=== PATIENT | male | born 1930 | race Caucasian/White ===

== ENCOUNTER 2017-01-06 08:50 | Inpatient (IN) ==
--- NOTE | 2017-01-06 09:06 | Emergency Department Note ---
Disposition Clinical Impression: TIA (transient ischemic attack) Disposition: Admitted As Inpatient Condition: Good Time of Disposition: 11:01 Neuro HPI - General Chief Complaint: ED Neuro Symptoms/Deficit Stated Complaint: TIA r/o/feels foggy and off balance/hx CVA Time Seen by Provider: 01/06/17 08:56 Source: patient, EMS Mode of arrival: EMS Limitations: other Nursing Notes Reviewed: Yes Vital Signs Reviewed: Yes - History of Present Illness HPI Narrative: Pt is an 86-year-old male with a past medical history of TIA and HTN that presents to the ED with chief complaint difficulty in walking and talking. States that he woke up today at 4 AM and symptoms started around 6 AM. He denies any chest pain, shortness of breath, nausea, headache, urinary symptoms, change in vision, vomiting, abdominal pain, neck pain. Daughters at bedside and states that patient does his exact routine every morning and today had trouble speaking and pouring coffee as well as tying his shoe at approx 6 AM. Daughter states that his speech is always a little mumbled secondary to previous TIA in the past but today it worsened at 6 AM. He is not on any blood thinners. Does take a aspirin daily. Onset of Symptoms Time: 06:00 Symptom Onset Unknown: Yes Timing confirmed by: family member Location: speech History of same: Yes Severity: moderate Quality: other (Difficulty with balance, speaking and daily task) Symptoms Improving: No Improves with: none Worsens with: none Context: sudden onset On Anticoagulants: No Associated symptoms: Reports: denies other symptoms. Denies: confusion, chest pain, cough, diaphoresis, fever/chills, headaches, loss of appetite, malaise, nausea/vomiting, vertigo, seizures, shortness of breath, syncope, weakness Treatments Prior to Arrival: none - Related Data Home Medications: Home Medications Medication Instructions Recorded Confirmed Amlodipine Besylate 10 mg PO DAILY 01/06/17 01/06/17 Aspirin [Aspirin] 325 mg PO DAILY 01/06/17 01/06/17 Atenolol [Tenormin] 50 mg PO DAILY 01/06/17 01/06/17 hydroCHLOROthiazide 25 mg PO DAILY 01/06/17 01/06/17 [Hydrochlorothiazide] Allergies/Adverse Reactions: Allergies Allergy/AdvReac Type Severity Reaction Status Date / Time No Known Allergies Allergy Verified 01/06/17 08:55 All systems ED: reviewed and negative except as stated. Review of Systems: As Per HPI Constitutional: Denies: fever, chills, weakness Eyes: Denies: vision change ENT ED: Denies: ear pain, throat pain, dental pain, congestion Cardiovascular: Denies: chest pain, palpitations, dyspnea on exertion, syncope Respiratory: Denies: cough, dyspnea, wheezes Gastrointestinal: Denies: abdominal pain, nausea, vomiting, hematemesis, melena , hematochezia Genitourinary: Denies: urgency, dysuria, frequency, hematuria Musculoskeletal: Denies: back pain, neck pain Integumentary: Denies: rash Neurological: Reports: paresthesias (Left upper and lower extremity). Denies: headache, weakness, numbness Past Medical History - Past Medical History Source: patient Medical history: Reports: CVA, hypertension - Social History Smoking Status: Former smoker Smokeless Tobacco Status: No Alcohol use: Reports: none Drug use: Reports: none Physical Exam - General Limitations: no limitations General appearance: alert, in no apparent distress - Head Head exam: atraumatic, normocephalic, normal inspection - Eye Eye exam: Present: normal appearance, PERRL, EOMI. Absent: conjunctival injection - ENT ENT exam: normal exam, normal oropharynx, mucous membranes moist, TM's normal bilaterally - Neck Neck exam: Present: normal inspection, full ROM, trachea midline. Absent: tenderness, meningismus - Chest Chest inspection: Present: normal inspection, symmetric chest wall rise - Respiratory Respiratory exam: Present: normal lung sounds bilaterally. Absent: respiratory distress - Cardiovascular Cardiovascular exam: Present: regular rate, normal rhythm, normal heart sounds - Abdominal Exam Abdominal exam: Present: soft, Non-Tender. Absent: tenderness, distention, guarding, rebound, rigidity - Extremities Exam Extremities exam: Present: normal inspection, full ROM. Absent: pedal edema - Back Exam Back exam: Present: normal inspection - Neurological Exam Neurological exam: Present: alert, oriented X3, CN II-XII intact, normal gait - Psychiatric Psychiatric exam: Present: normal affect, normal mood - Skin Skin exam: Present: warm, dry, intact, normal color. Absent: rash, cyanosis, diaphoresis Course Course Narrative: Pt is an 86-year-old male with a past medical history of TIA and HTN that presents to the ED with chief complaint difficulty in walking and talking. States that he woke up today at 4 AM and symptoms started around 6 AM. He denies any chest pain, shortness of breath, nausea, headache, urinary symptoms, change in vision, vomiting, abdominal pain, neck pain. Daughters at bedside and states that patient does his exact routine every morning and today had trouble speaking and pouring coffee as well as tying his shoe at approx 6 AM. Daughter states that his speech is always a little mumbled secondary to previous TIA in the past but today it worsened at 6 AM. He is not on any blood thinners. Does take a aspirin daily. Pt is alert and oriented 3. Appears in no acute distress. Following commands. Mild slurred speech that family states is a little worse then normal Head normocephalic. No signs of external trauma. Eyes normal inspection. PERRL. Extraocular movements intact. ENT within normal limits. Airway patent. Neck supple, full range of motion, nontender. Heart RRR. Lungs CTAB. Abdomen soft, nontender. Back inspection, nontender. Extremities within normal limits. Neuro no focal neurological deficits noted on exam. Only abnormality on NIH stroke scale was change in sensory to left upper and lower extremity compared to right upper and lower extremity. Stroke Alert called. Stat CT ordered. Reviewed labs. CT shows No acute intracranial abnormality. Age related changes including chronic small vessel ischemic disease and cerebral atrophy. EKG: reviewed by Dr. Fuller and Joelle. Sinus rhythm. nonspecific ST changes seen in the V2 and V3. However, patient has no chest pain. [facility] neurology contacted. Stroke assessment was performed at bedside by [facility] neurologists. NIH scale 1. He recommended no TPA and obtaining MR brain and lipid panel. States he recommended no TPA secondary to only mild symptoms Discussed case with Dr. Greenberg. He again recommended MRI of the brain and to admit to medicine and to consult him. Discussed imaging and lab results with patient and family. Will admit to medicine. Discussed case with Dr. Moore. Will start patient. No other requested this time. Patient stable to be transferred to the floor. Discussed case with Dr. Vasquez. He had [id number] time with patient and agrees with my assessment and treatment plan. Vital Signs Temperature 98.2 F 01/06/17 08:55 Pulse Rate 56 01/06/17 08:55 Respiratory Rate 20 01/06/17 08:55 Blood Pressure 156/77 01/06/17 08:55 O2 Sat by Pulse Oximetry 97 01/06/17 08:55 Temperature 98.2 F 01/06/17 08:55 Pulse Rate 63 01/06/17 10:45 Respiratory Rate 20 01/06/17 10:58 Blood Pressure 139/75 01/06/17 10:58 O2 Sat by Pulse Oximetry 98 01/06/17 09:11 Oxygen Delivery Oxygen Delivery Room Air Neuro Symptoms/Deficit - Medical Records Medical records reviewed: Yes I reviewed the patient's medical records. - Lab Data Lab results reviewed: Yes I reviewed the patient's lab results. Result diagrams: 01/06/17 09:06 01/06/17 09:06 Lab Results 01/06/17 01/06/17 01/06/17 Range/Units 08:53 09:06 09:06 WBC 5.2 (4.3-11.1) K/mcL RBC 3.99 L (4.19-5.50) M/mcL Hgb 13.6 (12.9-16.9) g/dL Hct 39.4 (37.5-50.1) % MCV 98.7 (83.0-100.0) fL MCH 34.1 H (28.0-33.3) pg MCHC 34.5 (31.6-35.5) g/dL RDW 13.0 (11.5-14.5) % Plt Count 184 (140-400) K/mcL MPV 8.9 L (9.4-12.4) fL Immature Gran % 0.4 (0-4) % Seg Neutrophils % 53.5 % Lymphocytes % 32.4 % Monocytes % 12.0 % Eosinophils % 1.5 % Basophils % 0.2 % Neutrophils # 2.8 (1.6-8.9) K/mcL Lymphocytes # 1.7 (0.6-4.6) K/mcL Monocytes # 0.6 (0.0-1.3) K/mcL Eosinophils # 0.1 (0.0-0.6) K/mcL Basophils # 0.0 (0.0-0.2) K/mcL PT 10.2 (9.4-12.1) Seconds INR 1.0 APTT 25.8 L (26.0-36.0) Seconds Sodium (136-145) mEq/L Potassium (3.5-4.5) mEq/L Chloride (98-109) mEq/L Carbon Dioxide (19-29) mEq/L BUN (8-26) mg/dL Creatinine (0.72-1.25) mg/dL Est GFR ( Amer) (> 60) Est GFR (Non-Af Amer) (> 60) BUN/Creatinine Ratio (6-26) Glucose (70-99) mg/dL POC Glucose 98 H (58-89) Calculated Osmolality (280-300) Calcium (8.6-10.8) mg/dL Troponin I (0-0.03) ng/mL Triglycerides (< 150) mg/dL Cholesterol (< 200) mg/dL LDL Cholesterol, Calc (0-99) mg/dL VLDL Cholesterol, Calc (< 31) mg/dL HDL Cholesterol (40-59) mg/dL Cholesterol/HDL Ratio (0-4.9) Urine Color (Yellow) Urine Clarity (Clear) Urine pH (5.0-8.0) pH Units Ur Specific [place] (1.010-1.025) Urine Protein (Neg-Trace) mg/dL Urine Glucose (UA) (Normal) mg/dL Urine Ketones (Negative) mg/dL Urine Blood (Negative) Urine Nitrite (Negative) Urine Bilirubin (Negative) Urine Urobilinogen (Normal) mg/dL Ur Leukocyte Esterase (Negative) Urine Microscopic RBC (0-3) per hpf Urine Microscopic WBC (0-3) per hpf Ur Squamous Epith Cells (None-Few) per lpf Urine Bacteria (None-Few) per hpf Hyaline Casts (None-Few) per lpf Ur Culture Indicated? (NO) 01/06/17 01/06/17 01/06/17 Range/Units 09:06 09:06 09:21 WBC (4.3-11.1) K/mcL RBC (4.19-5.50) M/mcL Hgb (12.9-16.9) g/dL Hct (37.5-50.1) % MCV (83.0-100.0) fL MCH (28.0-33.3) pg MCHC (31.6-35.5) g/dL RDW (11.5-14.5) % Plt Count (140-400) K/mcL MPV (9.4-12.4) fL Immature Gran % (0-4) % Seg Neutrophils % % Lymphocytes % % Monocytes % % Eosinophils % % Basophils % % Neutrophils # (1.6-8.9) K/mcL Lymphocytes # (0.6-4.6) K/mcL Monocytes # (0.0-1.3) K/mcL Eosinophils # (0.0-0.6) K/mcL Basophils # (0.0-0.2) K/mcL PT (9.4-12.1) Seconds INR APTT (26.0-36.0) Seconds Sodium 139 (136-145) mEq/L Potassium 4.4 (3.5-4.5) mEq/L Chloride 104 (98-109) mEq/L Carbon Dioxide 27 (19-29) mEq/L BUN 12 (8-26) mg/dL Creatinine 0.89 (0.72-1.25) mg/dL Est GFR ( Amer) > 60 (> 60) Est GFR (Non-Af Amer) > 60 (> 60) BUN/Creatinine Ratio 13 (6-26) Glucose 94 (70-99) mg/dL POC Glucose (58-89) Calculated Osmolality 288 (280-300) Calcium 10.1 (8.6-10.8) mg/dL Troponin I 0.01 (0-0.03) ng/mL Triglycerides 81 (< 150) mg/dL Cholesterol 163 (< 200) mg/dL LDL Cholesterol, Calc 71 (0-99) mg/dL VLDL Cholesterol, Calc 16 (< 31) mg/dL HDL Cholesterol 76 H (40-59) mg/dL Cholesterol/HDL Ratio 2.1 (0-4.9) Urine Color Yellow (Yellow) Urine Clarity Clear (Clear) Urine pH 8.0 (5.0-8.0) pH Units Ur Specific [place] 1.018 (1.010-1.025) Urine Protein Negative (Neg-Trace) mg/dL Urine Glucose (UA) Normal (Normal) mg/dL Urine Ketones Negative (Negative) mg/dL Urine Blood Negative (Negative) Urine Nitrite Negative (Negative) Urine Bilirubin Negative (Negative) Urine Urobilinogen Normal (Normal) mg/dL Ur Leukocyte Esterase Moderate H (Negative) Urine Microscopic RBC 5-15 H (0-3) per hpf Urine Microscopic WBC 15-30 H (0-3) per hpf Ur Squamous Epith Cells Many H (None-Few) per lpf Urine Bacteria None Seen (None-Few) per hpf Hyaline Casts None Seen (None-Few) per lpf Ur Culture Indicated? YES A (NO) - Radiology Data Radiology results reviewed: Yes I reviewed the patient's radiology results. - EKG Data EKG attestation: Yes I reviewed and interpreted this EKG. EKG shows normal: sinus rhythm Rate: normal Rhythm: NSR Interpretation: nonspecific ST-T wave changes NIH Stroke Scale - Level of Consciousness LOC: Alert - LOC Questions LOC Questions: Answers both correctly - LOC Commands LOC Commands: Performs both correctly - Best Gaze Best Gaze: Normal - Visual Visual: No visual loss - Facial Palsy Facial Palsy: Normal - Motor Arms Motor Arm-Left: No drift for 10 seconds Motor Arm-Right: No drift for 10 seconds - Motor Legs Motor Leg-Left: No drift for 5 seconds Motor Leg-Right: No drift for 5 seconds - Limb Ataxia Limb Ataxia: Absent of affected limb too weak to perform exam - Sensory Sensory: Mild to moderate loss, "not as sharp" - Best Language Best Language: No aphasia - Dysarthria Dysarthria: Normal - Extinction and Inattention Extinction and Inattention: Normal - NIHSS Total Score NIHSS Total Score: 1 TPA Checklist - LKW: 3-4.5 hrs Add. Warnings/Precautions Patient/family understanding: The patient/family members have been counseled and understood the risk, benefit , and alternatives of treatment.
--- NOTE | 2017-01-06 09:10 | Emergency Department Note ---
Disposition Clinical Impression: TIA (transient ischemic attack) Disposition: Admitted As Inpatient Condition: Good General Adult HPI - General Chief complaint: ED Neuro Symptoms/Deficit Stated complaint: TIA r/o/feels foggy and off balance/hx CVA Time Seen by Provider: 01/06/17 08:56 Source: patient, EMS Limitations: other Nursing Notes Reviewed: Yes Vital Signs Reviewed: Yes - History of Present Illness Pain Scale: 0 - Related Data Home Medications Medication Instructions Recorded Confirmed Amlodipine Besylate 10 mg PO DAILY 01/06/17 01/06/17 Aspirin [Aspirin] 325 mg PO DAILY 01/06/17 01/06/17 Atenolol [Tenormin] 50 mg PO DAILY 01/06/17 01/06/17 hydroCHLOROthiazide 25 mg PO DAILY 01/06/17 01/06/17 [Hydrochlorothiazide] Allergies Allergy/AdvReac Type Severity Reaction Status Date / Time No Known Allergies Allergy Verified 01/06/17 08:55 Past Medical History - Past Medical History Medical history: Reports: CVA, hypertension Psychiatric history: Reports: no psych history - Social History Smoking Status: Former smoker Smokeless Tobacco Status: No Alcohol use: Reports: none Drug use: Reports: none Physical Exam - General Limitations: other General appearance: alert Course Vital Signs Temperature 98.2 F 01/06/17 08:55 Pulse Rate 56 01/06/17 08:55 Respiratory Rate 20 01/06/17 08:55 Blood Pressure 156/77 01/06/17 08:55 O2 Sat by Pulse Oximetry 97 01/06/17 08:55 Temperature 98.2 F 01/06/17 08:55 Pulse Rate 72 01/06/17 12:00 Respiratory Rate 18 01/06/17 12:00 Blood Pressure 168/90 01/06/17 12:00 O2 Sat by Pulse Oximetry 97 01/06/17 12:00 Oxygen Delivery Oxygen Delivery Room Air Medical Decision Making - MDM Narrative Medical decision making narrative: For this encounter, I have reviewed the BILL ADJUSTER or PA documentation, treatment plan, and medical decision making; and I have had face to face time with this patient. Patient was seen and evaluated by Jewell Martinez the physician's temporary administrative assistant, and agree with her evaluation management plan, supervise care the patient's stay. Patient comes in this morning he said he gets up At 4 AM then somewhere between 6 and 6:30 he felt like his speech is more slurred and he felt that he was having some difficulty with ambulation. There he denies any weakness at this time. He does have some slurring of his speech which she said is worse than normal. He said he also feels a little foggy. He has had a stroke in the past. Based on his time of waking up at 4 AM but not having problems until 6 to 6:30. We are going to make him a stroke alert, he will have labwork CT and then evaluation with tele-neurology. He is in agreement to this plan. Head CT 01/06/17 08:56 IMPRESSION: No acute intracranial abnormality. Age related changes including chronic small vessel ischemic disease and cerebral atrophy. Findings were discussed with Dr. Holley on 01/06/2017 at 9:12 a.m.. D/ / Aliza Strong MD / Aliza Strong MD Interpreting Provider: Aliza Strong MD [id number] hours: No signs of stroke on his current CT. Discussed the case with [facility] neurology. They feel he is probably too mild for TPA and I would agree. They are going to do the assessment. And then reassess. He will most likely need admission. 1000 hrs.: Patient stable. He is can be admitted, with neurology and hospitalist consulting. Patient's critical care time excluding separately billable procedures is 35 minutes. This documentation is done with the assistance of [employer] dictation software. Though efforts have been made to ensure accuracy, there may be inaccuracies in optical model maker and tester or spelling or other typographical errors. - Lab Data Result diagrams: 01/06/17 09:06 01/06/17 09:06 Lab Results 01/06/17 01/06/17 01/06/17 Range/Units 08:53 09:06 09:06 WBC 5.2 (4.3-11.1) K/mcL RBC 3.99 L (4.19-5.50) M/mcL Hgb 13.6 (12.9-16.9) g/dL Hct 39.4 (37.5-50.1) % MCV 98.7 (83.0-100.0) fL MCH 34.1 H (28.0-33.3) pg MCHC 34.5 (31.6-35.5) g/dL RDW 13.0 (11.5-14.5) % Plt Count 184 (140-400) K/mcL MPV 8.9 L (9.4-12.4) fL Immature Gran % 0.4 (0-4) % Seg Neutrophils % 53.5 % Lymphocytes % 32.4 % Monocytes % 12.0 % Eosinophils % 1.5 % Basophils % 0.2 % Neutrophils # 2.8 (1.6-8.9) K/mcL Lymphocytes # 1.7 (0.6-4.6) K/mcL Monocytes # 0.6 (0.0-1.3) K/mcL Eosinophils # 0.1 (0.0-0.6) K/mcL Basophils # 0.0 (0.0-0.2) K/mcL PT 10.2 (9.4-12.1) Seconds INR 1.0 APTT 25.8 L (26.0-36.0) Seconds Sodium (136-145) mEq/L Potassium (3.5-4.5) mEq/L Chloride (98-109) mEq/L Carbon Dioxide (19-29) mEq/L BUN (8-26) mg/dL Creatinine (0.72-1.25) mg/dL Est GFR ( Amer) (> 60) Est GFR (Non-Af Amer) (> 60) BUN/Creatinine Ratio (6-26) Glucose (70-99) mg/dL POC Glucose 98 H (58-89) Calculated Osmolality (280-300) Calcium (8.6-10.8) mg/dL Troponin I (0-0.03) ng/mL Triglycerides (< 150) mg/dL Cholesterol (< 200) mg/dL LDL Cholesterol, Calc (0-99) mg/dL VLDL Cholesterol, Calc (< 31) mg/dL HDL Cholesterol (40-59) mg/dL Cholesterol/HDL Ratio (0-4.9) Urine Color (Yellow) Urine Clarity (Clear) Urine pH (5.0-8.0) pH Units Ur Specific [place] (1.010-1.025) Urine Protein (Neg-Trace) mg/dL Urine Glucose (UA) (Normal) mg/dL Urine Ketones (Negative) mg/dL Urine Blood (Negative) Urine Nitrite (Negative) Urine Bilirubin (Negative) Urine Urobilinogen (Normal) mg/dL Ur Leukocyte Esterase (Negative) Urine Microscopic RBC (0-3) per hpf Urine Microscopic WBC (0-3) per hpf Ur Squamous Epith Cells (None-Few) per lpf Urine Bacteria (None-Few) per hpf Hyaline Casts (None-Few) per lpf Ur Culture Indicated? (NO) 01/06/17 01/06/17 01/06/17 Range/Units 09:06 09:06 09:21 WBC (4.3-11.1) K/mcL RBC (4.19-5.50) M/mcL Hgb (12.9-16.9) g/dL Hct (37.5-50.1) % MCV (83.0-100.0) fL MCH (28.0-33.3) pg MCHC (31.6-35.5) g/dL RDW (11.5-14.5) % Plt Count (140-400) K/mcL MPV (9.4-12.4) fL Immature Gran % (0-4) % Seg Neutrophils % % Lymphocytes % % Monocytes % % Eosinophils % % Basophils % % Neutrophils # (1.6-8.9) K/mcL Lymphocytes # (0.6-4.6) K/mcL Monocytes # (0.0-1.3) K/mcL Eosinophils # (0.0-0.6) K/mcL Basophils # (0.0-0.2) K/mcL PT (9.4-12.1) Seconds INR APTT (26.0-36.0) Seconds Sodium 139 (136-145) mEq/L Potassium 4.4 (3.5-4.5) mEq/L Chloride 104 (98-109) mEq/L Carbon Dioxide 27 (19-29) mEq/L BUN 12 (8-26) mg/dL Creatinine 0.89 (0.72-1.25) mg/dL Est GFR ( Amer) > 60 (> 60) Est GFR (Non-Af Amer) > 60 (> 60) BUN/Creatinine Ratio 13 (6-26) Glucose 94 (70-99) mg/dL POC Glucose (58-89) Calculated Osmolality 288 (280-300) Calcium 10.1 (8.6-10.8) mg/dL Troponin I 0.01 (0-0.03) ng/mL Triglycerides 81 (< 150) mg/dL Cholesterol 163 (< 200) mg/dL LDL Cholesterol, Calc 71 (0-99) mg/dL VLDL Cholesterol, Calc 16 (< 31) mg/dL HDL Cholesterol 76 H (40-59) mg/dL Cholesterol/HDL Ratio 2.1 (0-4.9) Urine Color Yellow (Yellow) Urine Clarity Clear (Clear) Urine pH 8.0 (5.0-8.0) pH Units Ur Specific [place] 1.018 (1.010-1.025) Urine Protein Negative (Neg-Trace) mg/dL Urine Glucose (UA) Normal (Normal) mg/dL Urine Ketones Negative (Negative) mg/dL Urine Blood Negative (Negative) Urine Nitrite Negative (Negative) Urine Bilirubin Negative (Negative) Urine Urobilinogen Normal (Normal) mg/dL Ur Leukocyte Esterase Moderate H (Negative) Urine Microscopic RBC 5-15 H (0-3) per hpf Urine Microscopic WBC 15-30 H (0-3) per hpf Ur Squamous Epith Cells Many H (None-Few) per lpf Urine Bacteria None Seen (None-Few) per hpf Hyaline Casts None Seen (None-Few) per lpf Ur Culture Indicated? YES A (NO)
[2017-01-06 09:15] LABS: Basophils % 0.2 %; Eosinophils # 0.1 K/mcL (0.0-0.6); Eosinophils % 1.5 %; Hematocrit 39.4 % (37.5-50.1); Hemoglobin 13.6 g/dL (12.9-16.9); Immature Granulocytes % 0.4 % (0-4); Lymphocytes # 1.7 K/mcL (0.6-4.6); Lymphocytes % 32.4 %; Mean Corpuscular HGB Conc 34.5 g/dL (31.6-35.5); Mean Corpuscular Hemoglobin 34.1 pg (28.0-33.3); Mean Corpuscular Volume 98.7 fL (83.0-100.0); Mean Platelet Volume 8.9 fL (9.4-12.4); Monocytes # 0.6 K/mcL (0.0-1.3); Neutrophils # 2.8 K/mcL (1.6-8.9); Platelet Count 184 K/mcL (140-400); Red Blood Count 3.99 M/mcL (4.19-5.50); Segmented Neutrophils % 53.5 %
[2017-01-06 09:27] LABS: BUN/Creatinine Ratio 13 (6-26); Blood Urea Nitrogen 12 mg/dL (8-26); Calcium 10.1 mg/dL (8.6-10.8); Carbon Dioxide 27 mEq/L (19-29); Chloride 104 mEq/L (98-109); Glucose 94 mg/dL (70-99); Osmolality,Calculated 288 (280-300); Potassium 4.4 mEq/L (3.5-4.5); Sodium 139 mEq/L (136-145); eGFR For African Americans > 60 (> 60); eGFR For Non-African Americans > 60 (> 60)
[2017-01-06 09:36] LABS: Prothrombin Time 10.2 Seconds (9.4-12.1)
[2017-01-06 09:38] LABS: Activated Partial Thrombo Time 25.8 Seconds (26.0-36.0)
[2017-01-06 09:56] LABS: Chol/HDL Ratio 2.1 (0-4.9); Cholesterol 163 mg/dL (< 200); HDL Cholesterol 76 mg/dL (40-59); LDL Cholesterol,Calculated 71 mg/dL (0-99); Triglycerides 81 mg/dL (< 150)
[2017-01-06 09:59] LABS: Bilirubin,Urine Negative (Negative); Blood,Urine Negative (Negative); Clarity,Urine Clear (Clear); Color,Urine Yellow (Yellow); Glucose,Urine (UA) Normal (Normal); Ketones,Urine Negative (Negative); Leukocyte Esterase,Urine Moderate (Negative); Nitrite,Urine Negative (Negative); Protein,Urine Negative (Neg-Trace); Specific Gravity,Urine 1.018 (1.010-1.025); Urobilinogen,Urine Normal (Normal)
[2017-01-06 10:01] LABS: Bacteria,Urine None Seen per hpf (None-Few); Hyaline Casts,Urine None Seen per lpf (None-Few); Squamous Epithelial Cell,Urine Many per lpf (None-Few); WBC,Urine 15-30 per hpf (0-3)
[2017-01-06] MEDS ORDERED: Naloxone 0.4 MG/ML INJ IVP PRN ×2 (12:30→13:17)
--- NOTE | 2017-01-06 12:56 | Internal Med History&Physical ---
Date of Encounter: 01/06/17 Time of Encounter: 12:52 Assessment and Plan (1) CVA (cerebral vascular accident) Current visit: Yes Status: Acute Gait ataxia, left-sided extinction, right-sided facial droop and slurred speech. History of CVA in 2014. MRI obtained showing 9 mm infarct and posterior lateral right thalamus Neurology Dr. Greenberg consult will see patient this afternoon- Hold beta anna and hydrochlorothiazide for now for permissive hypertension Echocardiogram now Carotid ultrasound now NIHSS, neuro checks per protocol, NPO Resume aspirin, awaiting neurology recommendations for platelet therapy At 40 mg simvastatin first dose now then daily Heparin 5000 units subcutaneous daily for DVT prophylaxis PT, OT, social media editor and speech therapy consult Continuous telemetry, continuous O2 monitoring CBC, CMP in the morning Qualifiers: CVA mechanism: unspecified Qualified Code(s): I63.9 - Cerebral infarction, unspecified (2) UTI (urinary tract infection) Current visit: Yes Status: Acute UA positive for large leukocyte esterase. Denies any dysuria but does admit to some increase in urgency and frequency. No leukocytosis noted Urine sent for culture-narrow antibiotics based on culture Ceftriaxone 1 g IVPB now and then 1 g daily CBC in the morning Qualifiers: Urinary tract infection type: acute cystitis Hematuria presence: without hematuria Qualified Code(s): N30.00 - Acute cystitis without hematuria (3) HTN (hypertension) Current visit: Yes Status: Acute History of essential hypertension. Blood pressure systolically in the 160s now. Stressed with nephrology, and will see patient this afternoon, Hold beta anna and hydrochlorothiazide for permissive hypertension. Qualifiers: Hypertension type: essential hypertension Qualified Code(s): I10 - Essential (primary) hypertension (4) DVT prophylaxis Current visit: Yes Status: Acute Heparin 5000 units subcutaneous twice a day Internal Medicine - H&P: HPI Chief complaint: Gait ataxia, right-sided facial droop and slurred speech Admitted From: Home Plans for Post Hospital Care: Home History of present illness: Mr. Ma is a 86 year old male with a PMH of CVA in 2014 and hypertension. Presents to [facility] today with gait ataxia, left-sided upper extremity and lower extremity numbness, right-sided facial droop and slurred speech. Patient states began to proximally 6 AM. She is about 4 hours prior to arrival to the emergency department. Denies any fever, chills, chest pain, shortness of breath , palpitations, tachycardia, vision changes, dizziness, headaches or extremity swelling. A stroke alert was called and advised to advise against TPA at this time. Patient is not on any blood thinners but is taking aspirin. Continues to have dysarthria. CT of head negative for acute intercranial abnormalities. Will admit for further evaluation as he is high risk for CVA. Past Med Surg Social Fam HX - Past Medical History Medical history: CVA, hypertension Psychiatric history: no psych history - Social History Smoking Status: Former smoker Smokeless Tobacco Status: No Alcohol use: none Drug use: none - Family History Mother Living Status: Cause of : CVA Father Cause of : CVA Internal Medicine - H&P: Meds Amlodipine Besylate 10 mg PO DAILY 01/06/17 [History] Aspirin [Aspirin] 325 mg PO DAILY 01/06/17 [History] Atenolol [Tenormin] 50 mg PO DAILY 01/06/17 [History] hydroCHLOROthiazide [Hydrochlorothiazide] 25 mg PO DAILY 01/06/17 [History] 3 Allergy/AdvReac Type Severity Reaction Status Date / Time No Known Allergies Allergy Verified 01/06/17 08:55 All Systems PM: A 10-system review of systems was performed and is negative for pertinent findings except as documented above in the HPI. - Constitutional Constitutional: weakness, no chills, no fatigue, no fever(s), no malaise - EENT Eyes: no blurry vision, no change in vision - Cardiovascular Cardiovascular ROS IM: no chest pain, no diaphoresis, no dyspnea, no edema, no lightheadedness, no palpitations, no syncope - Respiratory Respiratory: no cough, no dyspnea, no wheezing, no excessive phlegm production - Gastrointestinal Gastrointestinal: no abdominal pain, no diarrhea, no hematemesis, no hematochezia, no melena, no nausea, no vomiting - Genitourinary Genitourinary ROS male: no dysuria, no flank pain - Integumentary Integumentary IM: no rash, no unusual bruising - Neurological Neurological ROS: abnormal gait, abnormal movements, abnormal speech, disequilibrium, focal weakness, lack of coordination, weakness, no abnormal hearing, no behavioral changes, no dizziness, no frequent falls, no headache(s) , no loss of vision, no numbness, no tingling - Constitutional Vitals: Temp Pulse Resp BP Pulse Ox 98.2 F 72 18 168/90 97 01/06/17 08:55 01/06/17 12:00 01/06/17 12:00 01/06/17 12:00 01/06/17 12:00 General appearance: Present: mild distress, A&O X 3, answers questions appropriately - Head Head exam: Present: atraumatic, normocephalic - Eye Eye exam: Present: nystagmus, PERRL. Absent: EOMI (Unable to perform occulomotor exam;) Pupils: Present: PERRL - Neck Neck exam general surgery: Present: supple, trachea midline. Absent: lymphadenopathy, tenderness - Respiratory Respiratory exam: Present: CTAB. Absent: accessory muscle use, rales, rhonchi, wheezes - Cardiovascular Cardiovascular exam: Present: RRR, +S1, +S2. Absent: diastolic murmur, gallop, rubs, systolic murmur - GI/Abdominal GI/Abdominal exam: Present: normal bowel sounds, soft, no peritoneal signs. Absent: distended, tenderness - Extremities Exam Extremities exam: Present: normal capillary refill, warm, radial pulses palpable and symmetrical. Absent: calf tenderness, cyanotic, pedal edema - Neurological Exam Neurological exam: Present: altered, oriented X3, pronater drift (Left upper arm ), facial droop (Right side), speech deficit (Slurred speech). Absent: strengths equal and symetr throughout - Expanded Neurological Exam Neurological exam expanded: Absent: expressive aphasia, receptive aphasia Patient oriented to: Present: person, place, time Speech: Present: slurred Cranial Nerves: nystagmus PM: Abnormal Right (Horizontal nystagmus of left eye and right eye), tongue deviation PM: Normal Ataxia: Present: yes Cerebellar function: finger to nose: Abnormal Left, heel to pritchard: Abnormal Left Upper motor neuron: Babinski sign: Normal, pronator drift: Abnormal Left, sensory extinction: Abnormal Left Sensory exam: lower extremity light touch: Abnormal Left, lower extremity pin prick: Abnormal Left, upper extremity light touch: Abnormal Left, upper extremity pin prick: Abnormal Left Neuro motor strength exam: LUE: 4, RUE: 5, LLE: 4, RLE: 5 Coma Scale Eye Opening: Spontaneous Coma Scale Motor Response: Obeys Commands Coma Scale Verbal Response: Oriented Coma Scale Total: 15 - Psychiatric Psychiatric exam: Present: normal affect, normal mood - Skin Skin exam: Present: dry, intact Internal Med - H&P Results - Labs CBC & Chem 7: 01/06/17 09:06 01/06/17 09:06 - EKG Data -: EKG Interpreted by Myself EKG shows normal: sinus rhythm Rate: normal - EKG Data Prior EKG available for review: yes When compared to previous EKG: there is no significant change Interpretation IM: normal EKG - Diagnostic Studies CT scan - head Status: image reviewed by me Additional comments: Negative for acute intracranial adamant that he MRI - head Status: image reviewed by me Additional comments: 9 mm infarct in posterior lateral right thalamus
--- NOTE | 2017-01-06 15:23 | Neurology - Consult Note ---
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 No past history of cardiac dysarthythmia or atrial fibrillation. Would recommend addition of plavix 75mg daily and continue aspirin but a smaller dose of 81mg daily. Continue statin therapy. PT evaluation. DVT prophylaxis. Await echocardiogram and carotid artery duplex. Qualifiers: CVA mechanism: unspecified Qualified Code(s): I63.9 - Cerebral infarction, unspecified History of Present Illness Chief complaint: balance difficulty, left facial numbness HPI: Mr. Ma is a 86 year old male with PMH significant for CVA, HTN, BPH who developed acute onset of balance difficulty, loss of control of left arm and leg , and lfet facial numbness. This occurred this AM about 6:30am and per his daughter patient used to have routine activity in the morning but this morning he was not able to use his left hand and when he tried to walk he had difficulty controlling his balance. Left arm and leg were weak and he could not control them Left face was numb. Initially CT of head showed no acute intracranial abnormality. MRI of brain showed left cerebellum at the vermis and left hemisphere, lacunar like. no midline shift, and no edema. Clinically, he is doing a little better but still has significant loss of use of left side although he is not weak. Speak is staccato pattern but he is comprehensive. Been taking Aspirin 325mg daily.and is on statin therapy Past Med Surg Social Fam HX - Past Medical History Medical history: CVA, hypertension Psychiatric history: no psych history - Social History Smoking Status: Former smoker Smokeless Tobacco Status: No Alcohol use: none Drug use: none - Family History Mother Living Status: Cause of : CVA Father Cause of : CVA Medications and Allergies Amlodipine Besylate 10 mg PO DAILY 01/06/17 [History] Aspirin [Aspirin] 325 mg PO DAILY 01/06/17 [History] Atenolol [Tenormin] 50 mg PO DAILY 01/06/17 [History] hydroCHLOROthiazide [Hydrochlorothiazide] 25 mg PO DAILY 01/06/17 [History] 3 Allergy/AdvReac Type Severity Reaction Status Date / Time No Known Allergies Allergy Verified 01/06/17 08:55 All Systems: A 10-system review of systems was performed and is negative for pertinent findings except as documented above in the HPI. Physical Examination - Vital Signs Vital Signs: Initial Vital Signs Temp Pulse Resp BP Pulse Ox 98.2 F 56 20 156/77 97 01/06/17 08:55 01/06/17 08:55 01/06/17 08:55 01/06/17 08:55 01/06/17 08:55 - Constitutional General appearance: chronically ill - Neurologic Sensorimotor examination: other (Has reduced pinprick to the left face) Detailed motor examination: other (Muscle power are equal bilaterally but has upward drfit and loss of dexterity to the left arm ) Motor examination - right side: 5/5: deltoids, biceps, triceps, wrist flexion, wrist extension, instrument designer, hip flexors, tibialis Anterior, quadriceps, toe extension (EHL), plantarflexion Motor examination - left side: 5/5: deltoids, biceps, triceps, wrist flexion, wrist extension, hip flexors, instrument designer, quadriceps, tibialis Anterior, toe extension (EHL), plantarflexion Detailed sensory examination: other (Reduced pinprink to the left face) Reflexes: Biceps: 2+, Triceps: 2+, Brachioradialis: 2+, Patella: 2+, Achilles: 2 + Mental Status Examination: awake, alert, oriented to person, oriented to place, oriented to time, follows commands appropriately, answers questions appropriately, no aphasia (Staccto pattern of speech, can be understood well by his daughters. ), makes eye contact, follows simple commands Cranial nerve examination: PERRL, EOMI, visual carlos intact, corneal reflexes brisk symmetrically, sensory to face intact, mastication intact, no facial asymmetry is present (left face droop noted), no dysarthria (dysarthric, staccato pattern of speech), hearing is intact symmetrically, soft palate elevates bilaterally upon phonation, gag reflex intact, flexes SCM and trapezius muscles symmetrically with full power, tongue protrudes midline, no atrophy or facial fasiculations present Cerebellar examination: no dysmetria (Significant dysmetria to the left arm and leg not. ), dysarthria, staccato Results - Laboratory Findings CBC and BMP: 01/06/17 09:06 01/06/17 09:06 Abnormal lab findings: Abnormal lab results RBC 3.99 M/mcL (4.19-5.50) L 01/06/17 09:06 MCH 34.1 pg (28.0-33.3) H 01/06/17 09:06 MPV 8.9 fL (9.4-12.4) L 01/06/17 09:06 APTT 25.8 Seconds (26.0-36.0) L 01/06/17 09:06 POC Glucose 98 (58-89) H 01/06/17 08:53 HDL Cholesterol 76 mg/dL (40-59) H 01/06/17 09:06 Ur Leukocyte Esterase Moderate (Negative) H 01/06/17 09:21 Urine Microscopic RBC 5-15 per hpf (0-3) H 01/06/17 09:21 Urine Microscopic WBC 15-30 per hpf (0-3) H 01/06/17 09:21 Ur Squamous Epith Cells Many per lpf (None-Few) H 01/06/17 09:21 Ur Culture Indicated? YES (NO) A 01/06/17 09:21 Consult Discharge Plan - Plan Referrals: Barrera Rivera Jr, MD [Primary Care Provider] -
[2017-01-06] MEDS ORDERED: cefTRIAXone 1,000 MG in Water for inj. (sterile) 10 ML IVP ONE (15:29)
--- NOTE | 2017-01-06 15:46 | Neurology - Consult Note ---
Date of Encounter: 01/06/17 Time of Encounter: 15:43 Assessment and Plan (1) CVA (cerebral vascular accident) Current Visit: Yes Status: Acute Patient developed acute cerebral infarct at the right thalamus consistent with small vessel lacunar infarct, causing mostly sensory deficits relating the left side. This appears to be small vessel etiology related to history HTN and hyperlipidemia. Would recommend to add clopidogrel 75mg daily and continue aspirin daily with a smaller dose of 81mg daily. Continue statin therapy. Patient may benefit from PT therapy. Swallow evaluation and DVT prophylaxis. Await echocardiography and carotid artery duplex Qualifiers: CVA mechanism: unspecified Qualified Code(s): I63.9 - Cerebral infarction, unspecified History of Present Illness Chief complaint: left sided weakness HPI: Mr. Ma is a 86 year old male ma with PMH significant for CVA, HTN who developed acute onset of left sided weakness, facial droop and slurred speech this AM. Patient interviewed in the presence of his daughters. Patient usually has very routine activity in the morning. However, this morning, patient developed difficulty with his left side, and his speech is slurred. he could not feel his left face. CT of head showed no acute intracranial abnormality. MRI of brain showed acute 9mm cerebral infarct at the right thalamus. Has difficult swallowing and choked on liquid. Is getting swallow evaluation now. Been taking aspirin 325mg daily for TIA occurred in the past. Past Med Surg Social Fam HX - Past Medical History Medical history: CVA, hypertension Psychiatric history: no psych history - Social History Smoking Status: Former smoker Smokeless Tobacco Status: No Alcohol use: none Drug use: none - Family History Mother Living Status: Cause of : CVA Father Cause of : CVA Medications and Allergies Amlodipine Besylate 10 mg PO DAILY 01/06/17 [History] Aspirin [Aspirin] 325 mg PO DAILY 01/06/17 [History] Atenolol [Tenormin] 50 mg PO DAILY 01/06/17 [History] hydroCHLOROthiazide [Hydrochlorothiazide] 25 mg PO DAILY 01/06/17 [History] 3 Allergy/AdvReac Type Severity Reaction Status Date / Time No Known Allergies Allergy Verified 01/06/17 08:55 All Systems: A 10-system review of systems was performed and is negative for pertinent findings except as documented above in the HPI. Physical Examination - Vital Signs Vital Signs: Initial Vital Signs Temp Pulse Resp BP Pulse Ox 98.2 F 56 20 156/77 97 01/06/17 08:55 01/06/17 08:55 01/06/17 08:55 01/06/17 08:55 01/06/17 08:55 - Constitutional General appearance: uncomfortable - Neurologic Sensorimotor examination: other (Left sided hemiparesthesia noted, involving his face as weel) Motor examination - right side: 5/5: deltoids, biceps, triceps, wrist flexion, wrist extension, door captain, hip flexors, tibialis Anterior, quadriceps, toe extension (EHL), plantarflexion Motor examination - left side: 5/5: deltoids, biceps, triceps, wrist flexion, wrist extension, hip flexors, door captain, quadriceps, tibialis Anterior, toe extension (EHL), plantarflexion Detailed sensory examination: intact (Left hemiparesthesia noted, strictly midline pattern) Reflex and gait examination: other (Gait unable to walk or stand on his own.) Reflexes: Biceps: 1+, Triceps: 1+, Brachioradialis: 1+, Patella: 1+, Achilles: 1 + Mental Status Examination: awake, alert, oriented to person, oriented to place, oriented to time, follows commands appropriately, answers questions appropriately, no aphasia (Patient is severely dysarthric, but language content appear intact. He is understood by his daughters), makes eye contact, follows simple commands Cranial nerve examination: PERRL, EOMI, visual carlos intact, corneal reflexes brisk symmetrically, sensory to face intact, mastication intact, no facial asymmetry is present (left facial droop noted), no dysarthria (Significant dysarthria noted), hearing is intact symmetrically, soft palate elevates bilaterally upon phonation, gag reflex intact, flexes SCM and trapezius muscles symmetrically with full power, tongue protrudes midline, no atrophy or facial fasiculations present Results - Laboratory Findings CBC and BMP: 01/06/17 09:06 01/06/17 09:06 Abnormal lab findings: Abnormal lab results RBC 3.99 M/mcL (4.19-5.50) L 01/06/17 09:06 MCH 34.1 pg (28.0-33.3) H 01/06/17 09:06 MPV 8.9 fL (9.4-12.4) L 01/06/17 09:06 APTT 25.8 Seconds (26.0-36.0) L 01/06/17 09:06 POC Glucose 98 (58-89) H 01/06/17 08:53 HDL Cholesterol 76 mg/dL (40-59) H 01/06/17 09:06 Ur Leukocyte Esterase Moderate (Negative) H 01/06/17 09:21 Urine Microscopic RBC 5-15 per hpf (0-3) H 01/06/17 09:21 Urine Microscopic WBC 15-30 per hpf (0-3) H 01/06/17 09:21 Ur Squamous Epith Cells Many per lpf (None-Few) H 01/06/17 09:21 Ur Culture Indicated? YES (NO) A 01/06/17 09:21 Consult Discharge Plan - Plan Referrals: Barrera Rivera Jr, MD [Primary Care Provider] -
[2017-01-06] MEDS: *HR* Heparin 5,000 UNIT/ML VIAL SQ SCH (18:45)
[2017-01-07 04:42] LABS: Prothrombin Time 10.9 Seconds (9.4-12.1)
[2017-01-07 04:45] LABS: Activated Partial Thrombo Time 26.5 Seconds (26.0-36.0)
[2017-01-07 04:57] LABS: Alanine Aminotransferase 14 Units/L (0-55); Albumin 3.5 g/dL (3.5-5.0); Albumin/Globulin Ratio 1.1 (1.1-2.2); Alkaline Phosphatase 47 Units/L (38-126); Aspartate Amino Transferase 22 Units/L (5-34); BUN/Creatinine Ratio 16 (6-26); Blood Urea Nitrogen 14 mg/dL (8-26); Calcium 9.4 mg/dL (8.6-10.8); Carbon Dioxide 24 mEq/L (19-29); Chloride 104 mEq/L (98-109); Globulin 3.3 g/dL (2.4-3.5); Glucose 88 mg/dL (70-99); Osmolality,Calculated 286 (280-300); Potassium 3.9 mEq/L (3.5-4.5); Sodium 138 mEq/L (136-145); Total Protein 6.8 g/dL (6.0-8.3); eGFR For African Americans > 60 (> 60); eGFR For Non-African Americans > 60 (> 60)
[2017-01-07 04:58] LABS: Basophils % 0.3 %; Eosinophils # 0.1 K/mcL (0.0-0.6); Hematocrit 38.3 % (37.5-50.1); Hemoglobin 13.1 g/dL (12.9-16.9); Immature Granulocytes % 0.3 % (0-4); Lymphocytes # 1.5 K/mcL (0.6-4.6); Lymphocytes % 24.2 %; Mean Corpuscular HGB Conc 34.2 g/dL (31.6-35.5); Mean Corpuscular Hemoglobin 33.6 pg (28.0-33.3); Mean Corpuscular Volume 98.2 fL (83.0-100.0); Mean Platelet Volume 9.2 fL (9.4-12.4); Monocytes # 0.7 K/mcL (0.0-1.3); Monocytes % 11.8 %; Neutrophils # 3.8 K/mcL (1.6-8.9); Platelet Count 194 K/mcL (140-400); Segmented Neutrophils % 62.4 %
[2017-01-07] MEDS: *HR* Heparin 5,000 UNIT/ML VIAL SQ SCH ×2 (06:51→18:24)
--- NOTE | 2017-01-07 07:48 | Internal Med Progress Note ---
Date of Encounter: 01/07/17 Time of Encounter: 07:46 - Assessment and plan (1) TIA (transient ischemic attack) Current Visit: Yes Status: Acute Assessment and plan: Seen neurology evaluation . tia due to small vessel TIA aspirin and Plavix recommended which is already ordered Qualifiers: Transient cerebral ischemia type: unspecified Qualified Code(s): G45.9 - Transient cerebral ischemic attack, unspecified (2) HTN (hypertension) Current Visit: Yes Status: Chronic Assessment and plan: Chronic and relatively controlled Qualifiers: Hypertension type: essential hypertension Qualified Code(s): I10 - Essential (primary) hypertension (3) UTI (urinary tract infection) Current Visit: Yes Status: Acute Assessment and plan: Will send urine for culture then resume Rocephin Qualifiers: Urinary tract infection type: acute cystitis Hematuria presence: without hematuria Qualified Code(s): N30.00 - Acute cystitis without hematuria (4) CVA (cerebral vascular accident) Current Visit: Yes Status: Acute Assessment and plan: has prior cva now with superimposed cva Qualifiers: CVA mechanism: unspecified Qualified Code(s): I63.9 - Cerebral infarction, unspecified - Subjective Interval history: Patient with history of prior CVA, hypertension, admitted with ataxic gait and left-sided weakness and slurred speech yesterday. Was seen by neurology please see neurology evaluation for detail patient slurred speech has improved somewhat he is able to move his left side very well but still has some numbness. PT/OT evaluation and treatment in progress the follow-up treatment no new complaints - Constitutional Vitals: Temp Pulse Resp BP Pulse Ox 97.8 F 77 15 147/80 96 01/07/17 07:08 01/07/17 07:08 01/07/17 07:08 01/07/17 07:08 01/07/17 07:08 General appearance: Present: mild distress, A&O X 3, answers questions appropriately - Eye Eye exam: Present: PERRL, conjuntiva pink, sclera anicteric Pupils: Present: PERRL - Neck Neck exam general surgery: Present: supple, trachea midline. Absent: lymphadenopathy - Respiratory Respiratory exam: Present: CTAB. Absent: accessory muscle use, rales, rhonchi, wheezes - Cardiovascular Cardiovascular exam: Present: RRR, +S1, +S2. Absent: diastolic murmur, gallop, rubs, systolic murmur - GI/Abdominal GI/Abdominal exam: Present: normal bowel sounds, soft, no peritoneal signs. Absent: distended, tenderness Internal Medicine: Result - Labs CBC & Chem 7: 01/07/17 03:58 01/07/17 03:58 Labs: Short CBC 01/07/17 Range/Units 03:58 WBC 6.1 (4.3-11.1) K/mcL Hgb 13.1 (12.9-16.9) g/dL Hct 38.3 (37.5-50.1) % Plt Count 194 (140-400) K/mcL Neutrophils # 3.8 (1.6-8.9) K/mcL BMP 01/07/17 03:58 Sodium 138 Potassium 3.9 Chloride 104 Carbon Dioxide 24 BUN 14 Creatinine 0.87 Glucose 88 Calcium 9.4 Liver Function 01/07/17 Range/Units 03:58 Total Bilirubin 1.0 (0.2-1.2) mg/dL AST 22 (5-34) Units/L ALT 14 (0-55) Units/L Alkaline Phosphatase 47 (38-126) Units/L Albumin 3.5 (3.5-5.0) g/dL - ABG Interpretation ABG results: PT/INR, D-dimer PT 10.9 Seconds (9.4-12.1) 01/07/17 03:58 Consult Discharge Plan - Plan Referrals: Barrera Rivera Jr, MD [Primary Care Provider] -
[2017-01-07] MEDS: cefTRIAXone 1,000 MG in Water for inj. (sterile) 10 ML IVP SCH (08:27)
[2017-01-07] MEDS: Aspirin 81 MG TAB.CHEW PO SCH (08:28)
[2017-01-07] MEDS: amLODIPine 5 MG TABLET PO SCH (08:28)
[2017-01-07] MEDS ORDERED: Aspirin 325 MG TABLET PO SCH (09:00)
[2017-01-08] MEDS: *HR* Heparin 5,000 UNIT/ML VIAL SQ SCH ×2 (05:58→16:55)
[2017-01-08] MEDS: amLODIPine 5 MG TABLET PO SCH (08:02)
[2017-01-08] MEDS: Aspirin 81 MG TAB.CHEW PO SCH (08:03)
[2017-01-08] MEDS: cefTRIAXone 1,000 MG in Water for inj. (sterile) 10 ML IVP SCH (08:03)
--- NOTE | 2017-01-08 15:23 | Internal Med Progress Note ---
Date of Encounter: 01/08/17 Time of Encounter: 12:20 - Assessment and plan (1) CVA (cerebral vascular accident) Current Visit: Yes Status: Acute Assessment and plan: patient with acute lacunar infarct-9 mm in the posterior lateral aspect of the right thalamus. With residual left-sided deficits and facial palsy. Patient has been evaluated by neurology and recommended aspirin, Plavix and statin. Continue physical therapy. Physical therapy recommends placement to skilled rehabilitation. Patient however wishes to go home with home health. Will discuss further with case management social worker and family tomorrow. On subcutaneous heparin for DVT prophylaxis. Qualifiers: CVA mechanism: other Qualified Code(s): I63.8 - Other cerebral infarction (2) HTN (hypertension) Current Visit: Yes Status: Chronic Assessment and plan: On amlodipine. Blood pressure remains elevated. Will also start patient on lisinopril. Qualifiers: Hypertension type: essential hypertension Qualified Code(s): I10 - Essential (primary) hypertension (3) DVT prophylaxis Current Visit: Yes Status: Acute (4) UTI (urinary tract infection) Current Visit: Yes Status: Acute Assessment and plan: Urine culture shows no growth. Patient received 3 days of antibiotics. Does not need any further antibiotics. We will stop. Qualifiers: Urinary tract infection type: acute cystitis Hematuria presence: without hematuria Qualified Code(s): N30.00 - Acute cystitis without hematuria - Subjective Interval history: Patient is currently working with physical therapy. Concerned that he is unable to ambulate due to his stroke. Denies any fever or chills. Tolerating diet well. No nausea or vomiting. - Constitutional Vitals: Temp Pulse Resp BP Pulse Ox 98.8 F 84 15 144/73 97 01/08/17 11:20 01/08/17 11:20 01/08/17 11:20 01/08/17 11:20 01/08/17 11:20 General appearance: Present: cooperative, A&O X 3, no acute distress, answers questions appropriately - Neck Neck exam general surgery: Present: supple, trachea midline. Absent: lymphadenopathy - Respiratory Respiratory exam: Present: CTAB. Absent: accessory muscle use, rales, rhonchi, wheezes - Cardiovascular Cardiovascular exam: Present: RRR, +S1, +S2. Absent: diastolic murmur, gallop, rubs, systolic murmur - GI/Abdominal GI/Abdominal exam: Present: normal bowel sounds, soft, no peritoneal signs. Absent: distended, tenderness - Extremities Exam Extremities exam: Present: warm, radial pulses palpable and symmetrical. Absent : calf tenderness, cyanotic, pedal edema - Neurological Exam Neurological exam: Present: oriented X3, no focal deficits, facial droop (Left- sided), speech deficit (Slurred speech) Additional comments: Left-sided facial droop. Left-sided weakness in upper and lower extremities present. - Skin Skin exam: Present: dry, intact Internal Medicine: Result - Labs CBC & Chem 7: 01/07/17 03:58 01/07/17 03:58 - ABG Interpretation ABG results: PT/INR, D-dimer PT 10.9 Seconds (9.4-12.1) 01/07/17 03:58 - Impressions Impressions Echocardiogram 01/07/17 10:12 Impressions: LVEF 60%. Normal LV chamber size, wall thickness and function. Mild left ventricular diastolic dysfunction. Normal right ventricular structure and function. No evidence of pulmonary hypertension. No significant valvular dysfunction. Suboptimal image quality, but no obvious shunting with agitated saline. Left Ventricular Wall Motion: Rest Echo Findings All wall segments showed normal motion. Findings: Study Quality * Technically adequate exam. ECG Findings * Normal sinus rhythm. Left Ventricle * LVEF 60%. * Normal LV chamber size, wall thickness and function. * Mild left ventricular diastolic dysfunction. Right Ventricle * Normal right ventricular structure and function. Left Atrium * Mildly dilated left atrium. Right Atrium * Mildly dilated right atrium. Interatrial Septum * Suboptimal image quality, but no obvious shunting with agitated saline. Aortic Valve * Aortic valve not well visualized. * No aortic regurgitation. * No aortic stenosis. Mitral Valve * Mild mitral annular calcification. * No mitral stenosis. * No mitral regurgitation. Tricuspid Valve * Normal tricuspid valve structure and function. * Trace tricuspid regurgitation. * No evidence of pulmonary hypertension. Pulmonic Valve * Pulmonic valve not well visualized. Aorta * Normally sized aortic root. Pericardium * The pericardium appears normal. IVC * Normal IVC dimensions and inspiratory collapse. Pulmonary Artery * Normal visualized portions of the main pulmonary artery. Consult Discharge Plan - Plan Referrals: Barrera Rivera Jr, MD [Primary Care Provider] -
[2017-01-09] MEDS: *HR* Heparin 5,000 UNIT/ML VIAL SQ SCH ×2 (05:37→19:14)
--- NOTE | 2017-01-09 06:07 | Electrocardiograph Report ---
[facility] Test Date: 2017-01-06 Pat Name: Ryan Ma Department: 103 Room: 2NE17 Gender: M Pumper Hand: SOLOMON : 1930 Requested By: Jeevan Vasquez Order Number: [id number] Reading MD: Estuardo Fisher DO Measurements Intervals [place] Rate: 62 P: 30 DE: 166 QRS: -23 QRSD: 90 T: 12 QT: 372 QTc: 378 Interpretive Statements SINUS RHYTHM POSSIBLE ANTERIOR MYOCARDIAL INFARCTION [30 ms Q WAVE IN V3/V4, OR R < 0.2 mV IN V4], OF INDETERMINATE AGE Electronically Signed On 01-09-2017 6:06:13 EST by Estuardo Fisher DO
[2017-01-09] MEDS: Aspirin 81 MG TAB.CHEW PO SCH (09:49)
[2017-01-09] MEDS: amLODIPine 5 MG TABLET PO SCH (09:49)
[2017-01-09] MEDS: cefTRIAXone 1,000 MG in Water for inj. (sterile) 10 ML IVP SCH (09:50)
[2017-01-09] MEDS: Acetaminophen 325 MG TABLET PO PRN (11:39)
--- NOTE | 2017-01-09 13:09 | Discharge Summary ---
Date of Encounter: 01/09/17 Time of Encounter: 09:10 - Discharge Diagnosis (1) CVA (cerebral vascular accident) Priority: Primary Status: Acute Qualifiers: CVA mechanism: other Qualified Code(s): I63.8 - Other cerebral infarction (2) HTN (hypertension) Priority: Secondary Status: Chronic Qualifiers: Hypertension type: essential hypertension Qualified Code(s): I10 - Essential (primary) hypertension (3) DVT prophylaxis Priority: Secondary Status: Acute (4) UTI (urinary tract infection) Priority: Secondary Status: Resolved Qualifiers: Urinary tract infection type: acute cystitis Hematuria presence: without hematuria Qualified Code(s): N30.00 - Acute cystitis without hematuria - Discharge Medications Prescriptions: Aspirin 81 mg PO DAILY #30 tab.chew Clopidogrel [Plavix] 75 mg PO DAILY #30 tablet Lisinopril [Zestril] 5 mg PO DAILY #30 tablet Simvastatin [Zocor] 20 mg PO QPM #30 tablet Home Medications: Amlodipine Besylate 10 mg PO DAILY 01/06/17 [History] Atenolol [Tenormin] 50 mg PO DAILY 01/06/17 [History] hydroCHLOROthiazide [Hydrochlorothiazide] 25 mg PO DAILY 01/06/17 [History] Aspirin 81 mg PO DAILY #30 tab.chew 01/09/17 [Rx] Clopidogrel [Plavix] 75 mg PO DAILY #30 tablet 01/09/17 [Rx] Lisinopril [Zestril] 5 mg PO DAILY #30 tablet 01/09/17 [Rx] Simvastatin [Zocor] 20 mg PO QPM #30 tablet 01/09/17 [Rx] Allergies/Adverse Reactions: 3 Allergy/AdvReac Type Severity Reaction Status Date / Time No Known Allergies Allergy Verified 01/06/17 08:55 Procedures/tests Complete & Pending: Procedures Performed prior 72 hours Category Date Time Status EV carotid duplex imaging BI Routine Y 01/07/17 10:12 Completed EV echocardiogram Routine Y 01/07/17 10:12 Completed Date of admission: 01/06/17 13:17 Primary care physician: Barrera Rivera Jr, MD Consults: 01/06/17 12:06 Consult to Metallography Teacher [CONS] Routine Reason for SW Consult: discharge planning 01/06/17 12:34 Consult to Physician [CONS] Routine Consulting Provider: Li,Siyun Reason for Consult: CVA Time Notified: 12:35 Call Completed: Yes 01/06/17 12:35 Consult to Occupational Therapy [CONS] Routine Comment: Evaluate, develop and implement POC Reason for Consult: CVA, new motor ataxia Consult to Physical Therapy [CONS] Routine Comment: Evaluate, develop and implement POC Reason for Consult: CVA, new motor ataxia 01/06/17 12:36 Consult to Speech Therapy [CONS] Routine Comment: Evaluate, develop and implement POC Reason for Consult: CVA, new Rt facial droop and slurred speech Call Completed: No 01/06/17 12:45 Consult to Speech Therapy [CONS] Routine Comment: Evaluate, develop and implement POC Reason for Consult: Failed dysphasia screen Call Completed: No Discharging clinician: Lula Lao Anticipated date of discharge: 01/10/17 - Patient Status Disposition: Home Health Service Condition: Good Functional capacity at discharge: uses cane/walker Overall status at discharge: patient is not back to baseline - Discharge Instructions Instructions: Lisinopril (By mouth), Aspirin (By mouth), Simvastatin (By mouth) , Clopidogrel (By mouth), Urinary Tract Infection in Men (DC), Ischemic Stroke ( DC), Chronic Hypertension (DC), Self Care Measures After a Stroke (DC) Follow Up With: Barrera Rivera Jr, MD [Primary Care Provider] - (In 1-2 weeks, requested) - Diet and Activity Activity: as per physical therapy Diet: low fat, low cholesterol, low salt diet, other (nectar thickened liquids; mechanically altered diet.) Hospital course: Mr. Ma is a 86 year old male patient with history of essential hypertension presented to the ED with complaints of acute onset gait ataxia,left facial droop and slurred speech, left sided weakness. Symptom onset was at least 4 hours prior to arrival to the ED. Telestroke consult was obtained and patient was not recommended TPA. He was then placed in the hospital for further evaluation. CT head did not show any acute abnormality. MRI head showed 9mm acute infarct in posterior right thalamus. Neurology was consulted. Per their recommendations, patient was placed on plavix, statin. Aspirin dosage was decreased to 81 mg. PT/OT was consulted. Per their evaluation, patient was recommended placement to inpatient rehab. He however wishes to go home with home health and understands that this could hamper his recovery. Speech therapy was consulted and have placed him on nectar thickened liquids and mechanically altered diet. He is now stable to be discharged home from a medical standpoint. His antihypertensive regimen has been adjusted to better control his blood pressure. Echocardiogram showed LVEF 60%. Normal LV chamber size, wall thickness and function. Mild left ventricular diastolic dysfunction. No obvious shunting with agitated saline. Carotid dopplers showed non stenotic plaque. Patient had abnormal urinalysis and was suspected of UTI on admission and treated with rocephin for 3 days. Cultures have been negative. No need for further antibiotics. - Time Spent with Patient Total time spent providing and/or coordinating discharge services: Greater than 30 minutes (40 min) - Constitutional Vitals: Temp Pulse Resp BP Pulse Ox 98 F 78 17 132/75 97 01/09/17 06:48 01/09/17 06:48 01/09/17 06:48 01/09/17 06:48 01/09/17 06:48 General appearance: Present: cooperative, A&O X 3, no acute distress, answers questions appropriately - Neck Neck exam general surgery: Present: supple, trachea midline. Absent: lymphadenopathy - Respiratory Respiratory exam: Present: CTAB. Absent: accessory muscle use, rales, rhonchi, wheezes - Cardiovascular Cardiovascular exam: Present: RRR, +S1, +S2. Absent: diastolic murmur, gallop, rubs, systolic murmur - Extremities Exam Extremities exam: Present: warm, radial pulses palpable and symmetrical. Absent : calf tenderness, cyanotic, pedal edema - Neurological Exam Neurological exam: Present: alert, oriented X3, facial droop (left facial droop) , speech deficit (Slurred speech) Additional comments: Left upper and lower extremity weakness with 3 /5 strength
--- NOTE | 2017-01-09 13:11 | Physician Discharge Referral ---
Home Health/Hosp Referral Info Transfer to: Home Health Provider in Charge Post Discharge: PCP - Diagnosis (1) CVA (cerebral vascular accident) Priority: Primary Status: Acute (2) HTN (hypertension) Priority: Secondary Status: Chronic (3) DVT prophylaxis Priority: Secondary Status: Acute (4) UTI (urinary tract infection) Priority: Secondary Status: Resolved - Respiratory Orders Smoking Cessation: Smoking cessation has been advised. For more information, call the [place] Tobacco Quit Line at 7-158-KYDR-NOW. - Diet/Nutrition Diet/Nutrition Orders: Mechanical Soft (nectar thickened liquids; mechanically altered diet.), No Added Salt (JILLIAN), Cardiac - Activity Activity Orders: Walker - Services Needed Following services are medically necessary services: Nursing, Physical Therapy, Occupational Therapy, Speech Therapy - Transfer Medications Prescriptions: Aspirin 81 mg PO DAILY #30 tab.chew Clopidogrel [Plavix] 75 mg PO DAILY #30 tablet Lisinopril [Zestril] 5 mg PO DAILY #30 tablet Simvastatin [Zocor] 20 mg PO QPM #30 tablet Home Medications: Amlodipine Besylate 10 mg PO DAILY 01/06/17 [History] Aspirin [Aspirin] 325 mg PO DAILY 01/06/17 [History] Atenolol [Tenormin] 50 mg PO DAILY 01/06/17 [History] hydroCHLOROthiazide [Hydrochlorothiazide] 25 mg PO DAILY 01/06/17 [History] Aspirin 81 mg PO DAILY #30 tab.chew 01/09/17 [Rx] Clopidogrel [Plavix] 75 mg PO DAILY #30 tablet 01/09/17 [Rx] Lisinopril [Zestril] 5 mg PO DAILY #30 tablet 01/09/17 [Rx] Simvastatin [Zocor] 20 mg PO QPM #30 tablet 01/09/17 [Rx] Allergies/Adverse Reactions: 3 Allergy/AdvReac Type Severity Reaction Status Date / Time No Known Allergies Allergy Verified 01/06/17 08:55 Certification: Further, I certify that my clinical findings support that this patient is homebound (i.e. absences from home require considerable and taxing effort and are for medical reasons or protestant services or infrequently or short duration when for other reasons) because: Homebound Reason: Patient requires assistance of a person or device to safely leave home Attestation: My signature below is to certify that this patient is under my care and that I, or nurse practitioner, or a physician's assistant manager airside operations working with me, has a face-to -face encounter with this patient.
[2017-01-09 16:10] LABS: BUN/Creatinine Ratio 22 (6-26); Blood Urea Nitrogen 21 mg/dL (8-26); Calcium 8.9 mg/dL (8.6-10.8); Carbon Dioxide 22 mEq/L (19-29); Chloride 103 mEq/L (98-109); Glucose 106 mg/dL (70-99); Osmolality,Calculated 285 (280-300); Potassium 4.1 mEq/L (3.5-4.5); Sodium 136 mEq/L (136-145); eGFR For African Americans > 60 (> 60); eGFR For Non-African Americans > 60 (> 60)
--- NOTE | 2017-01-10 | Event Note ---
Date of Encounter: 01/09/17 Time of Encounter: 18:00 Patient tachycardic at this time. Likely due to not receiving atenolol. Will resume. Hold discharge for now.
[2017-01-10] MEDS: *HR* Heparin 5,000 UNIT/ML VIAL SQ SCH (05:41)
[2017-01-10 06:43] VITALS: BP 127/70
[2017-01-10] MEDS: amLODIPine 5 MG TABLET PO SCH (09:00)
[2017-01-10] MEDS ORDERED: hydroCHLOROthiazide 25 MG TABLET PO SCH (09:00)
[2017-01-10] MEDS: Acetaminophen 325 MG TABLET PO PRN (09:01)
[2017-01-10] MEDS: Aspirin 81 MG TAB.CHEW PO SCH (09:01)
--- NOTE | 2017-01-10 11:17 | Internal Med Progress Note ---
Date of Encounter: 01/10/17 Time of Encounter: 11:15 - Subjective Interval history: Patient is an 86y/o male admitted for acute CVA and UTI He was discharged to home yesterday however discharge was placed on hold due to tachycardia It was noted that patient's Atenolol dose had been placed on hold due to the bradycardia upon admission. His atenolol was restarted yesterday evening and his HR has been wnl. At this time, he is hemodynamically stable He will be discharged to home with ASA, Plavix, Lisinopril, and Simvastatin in addition to his home meds he is to hold his Atenolol if his HR is less than 60. Pt's daughter present at bedside is educated of this, as she takes care of the patient and gives him his meds. Pt was seen and examined with daughter present at bedside Current HR: 68 Clinically asymptomatic Assessment/Plan: (1) CVA (cerebral vascular accident) Priority: Primary Status: Acute Qualifiers: CVA mechanism: other Qualified Code(s): I63.8 - Other cerebral infarction (2) HTN (hypertension) Priority: Secondary Status: Chronic Qualifiers: Hypertension type: essential hypertension Qualified Code(s): I10 - Essential (primary) hypertension (3) DVT prophylaxis Priority: Secondary Status: Acute (4) UTI (urinary tract infection) Priority: Secondary Status: Resolved - Constitutional Vitals: Temp Pulse Resp BP Pulse Ox 98.1 F 56 15 127/70 97 01/10/17 06:41 01/10/17 06:41 01/10/17 06:41 01/10/17 06:41 01/10/17 06:41 General appearance: Present: cooperative, A&O X 3, no acute distress, answers questions appropriately - Head Head exam: Present: atraumatic, normocephalic - Eye Eye exam: Present: conjuntiva pink, sclera anicteric - Respiratory Respiratory exam: Present: CTAB. Absent: respiratory distress, wheezes - Cardiovascular Cardiovascular exam: Present: RRR, +S1, +S2. Absent: diastolic murmur, gallop, rubs, systolic murmur - GI/Abdominal GI/Abdominal exam: Present: normal bowel sounds, soft, no peritoneal signs. Absent: distended, tenderness - Extremities Exam Extremities exam: Present: warm, radial pulses palpable and symmetrical. Absent : calf tenderness - Neurological Exam Neurological exam: Present: alert, oriented X3 - Psychiatric Psychiatric exam: Present: normal affect, normal mood Internal Medicine: Result - Labs CBC & Chem 7: 01/07/17 03:58 01/09/17 15:47 Labs: BMP 01/09/17 15:47 Sodium 136 Potassium 4.1 Chloride 103 Carbon Dioxide 22 BUN 21 Creatinine 0.97 Glucose 106 H Calcium 8.9 - ABG Interpretation ABG results: PT/INR, D-dimer PT 10.9 Seconds (9.4-12.1) 01/07/17 03:58 - Stroke Contraindication Rehab Services Not Assessed: Refused by Patient / Family Consult Discharge Plan - Plan Instructions: Lisinopril (By mouth), Aspirin (By mouth), Simvastatin (By mouth) , Clopidogrel (By mouth), Urinary Tract Infection in Men (DC), Ischemic Stroke ( DC), Chronic Hypertension (DC), Self Care Measures After a Stroke (DC) Additional Instructions: Do not take Atenolol if pulse is less than 60 Referrals: Barrera Rivera Jr, MD [Primary Care Provider] - (In 1-2 weeks, requested) Prescriptions: Aspirin 81 mg PO DAILY #30 tab.chew Clopidogrel [Plavix] 75 mg PO DAILY #30 tablet Lisinopril [Zestril] 5 mg PO DAILY #30 tablet Simvastatin [Zocor] 20 mg PO QPM #30 tablet
== END 2017-01-10 13:30 | disposition home health service (06) | DRG 65 ==
LOC: EMEROO 08:50 → 2NENU 08:50 → SUATTDRO 13:17
PROVIDERS: ADMIT Internal Medicine; ATTEND Internal Medicine